=== PATIENT | male | born 1965 | race Caucasian/White ===

== ENCOUNTER 2017-01-02 13:36 | Emergency (ER) | payer SELFPAY ==
[2017-01-02] MEDS ORDERED: NORMAL SALINE 1000 ML 1,000 ML IV ONE (13:53)
[2017-01-02] MEDS ORDERED: OXYCODONE-ACETAMINOPHEN 5-325 MG TABLET PO ONE (13:54)
--- NOTE | 2017-01-02 13:55 | ER Document Report ---
ED Medical Screen (RME) - General Chief Complaint: Flank Pain Stated Complaint: RIGHT FLANK PAIN Time Seen by Provider: 01/02/17 13:51 Information source: Patient Notes: Right flank pain with radiation to his right lower quadrant with dark urine starting yesterday. Nausea without vomiting or fevers. No testicular pain or swelling. No history of kidney stones. TRAVEL OUTSIDE OF THE [place] IN LAST 30 DAYS: No - Related Data Allergies/Adverse Reactions: Penicillins Allergy (Unknown, Verified 04/23/13 10:47) Sulfa (Sulfonamide Antibiotics) Allergy (Unknown, Verified 04/23/13 10:48) Past Medical History Renal/ Medical History: Denies: Hx Peritoneal Dialysis Past Surgical History: Reports: Hx Abdominal Surgery - exploratory lap - Immunizations Hx Diphtheria, Pertussis, Tetanus Vaccination: No Physical Exam - Vital signs Vitals: Temp Pulse Resp BP Pulse Ox 98.3 F 88 16 157/106 H 99 01/02/17 13:47 01/02/17 13:47 01/02/17 13:47 01/02/17 13:47 01/02/17 13:47 Course - Vital Signs Vital signs: Temp Pulse Resp BP Pulse Ox 98.3 F 88 16 157/106 H 99 01/02/17 13:47 01/02/17 13:47 01/02/17 13:47 01/02/17 13:47 01/02/17 13:47
[2017-01-02 14:30] LABS: ABSOLUTE LYMPHOCYTES (AUTO) 1.6 10^3/uL (0.5-4.7); ABSOLUTE MONOCYTES (AUTO) 0.9 10^3/uL (0.1-1.4); ABSOLUTE NEUT (AUTO) 9.8 10^3/uL (1.7-8.2); BASOPHILS % (AUTO) 0.1 % (0-2); EOSINOPHILS % (AUTO) 0.3 % (0-6); HEMOGLOBIN 15.7 g/dL (13.5-17.0); HGB HCT DIFFERENCE 2.1; LYMPHOCYTES % (AUTO) 12.9 % (13-45); MEAN CORPUSCULAR HEMOGLOBIN 36.9 pg (27.0-33.4); MEAN CORPUSCULAR HGB CONC 34.8 g/dL (32.0-36.0); MEAN CORPUSCULAR VOLUME 106 fl (80-97); MONOCYTES % (AUTO) 7.3 % (3-13); RED BLOOD COUNT 4.24 10^6/uL (4.35-5.55); RED CELL DISTRIBUTION WIDTH 13.9 % (11.5-14.0); SEGMENTED NEUTROPHILS % (AUTO) 79.4 % (42-78); WHITE BLOOD COUNT 12.3 10^3/uL (4.0-10.5)
[2017-01-02 14:38] LABS: APPEARANCE,URINE SLIGHTLY-CLOUDY; BILIRUBIN,URINE NEGATIVE (NEGATIVE); GLUCOSE, URINE NEGATIVE (NEGATIVE); KETONES,URINE NEGATIVE (NEGATIVE); LEUKOCYTE ESTERASE,URINE LARGE (NEGATIVE); NITRITE,URINE NEGATIVE (NEGATIVE); PROTEIN,URINE 100 mg/dL (NEGATIVE); URINE SPECIFIC GRAVITY 1.002; UROBILINOGEN,URINE NEGATIVE mg/dL (<2.0)
[2017-01-02 14:42] LABS: ANION GAP 15 (5-19); BLOOD UREA NITROGEN 2 mg/dL (7-20); CALCIUM 9.3 mg/dL (8.4-10.2); CARBON DIOXIDE 27 mmol/L (22-30); CHLORIDE 99 mmol/L (98-107); CREATININE RESULT 0.59 mg/dL (0.52-1.25); GLUCOSE 105 mg/dL (75-110)
--- NOTE | 2017-01-02 14:55 | RADIOLOGY REPORT (SQ) ---
EXAM DESCRIPTION: CT [facility] RENAL STONE PROTOCOL ON COMPLETED DATE/TIME: 01/02/2017 2:30 pm REASON FOR STUDY: PIT, right flank pain COMPARISON: None. TECHNIQUE: CT scan of the abdomen and pelvis performed without intravenous or oral contrast. Images reviewed with lung, soft tissue, and bone windows. Reconstructed coronal and sagittal MPR images revi ewed. All images stored on PACS. All CT scanners at this facility use dose modulation, iterative reconstruction, and/or weight based d osing when appropriate to reduce radiation dose to as low as reasonably achievable (ALARA). [facility]: Dose Right [facility]: CareDose [facility]: Dose Right [facility]: Teradose 4D [facility]: [employer] RADIATION DOSE: Up-to-date CT equipment and radiation dose reduction techniques were employed. CTDIv ol: 4.9 mGy. DLP: 261 mGy-cm.mGy. LIMITATIONS: None. FINDINGS: Right-sided perinephric stranding is present, with mild prominence of the right ureter americo n to the level of the ureterovesical junction. No radiopaque stone is identified. Findings could be due to pyelonephritis, or non radiopaque ureteral stone in the distal ureter. Recent passage of a k idney stone could also mimic this appearance. No right-sided renal cysts or gross renal masses. No radiopaque right intrarenal calculi. . LOWER CHEST: No significant findings. No nodules or infiltrates. NON-CONTRASTED LIVER, SPLEEN, ADRENALS: Decreased attenuation of the liver from fatty infiltration. Spleen, adrenal glands unremarkable. PANCREAS: No masses. No peripancreatic inflammatory changes. GALLBLADDER: No identified stones by CT criteria. No inflammatory changes to suggest cholecystitis. RIGHT KIDNEY AND URETER: As above LEFT KIDNEY AND URETER: No suspicious masses. Assessment limited by lack of IV contrast. No signifi cant calcifications. No hydronephrosis or hydroureter. AORTA AND RETROPERITONEUM: No aneurysm. No retroperitoneal masses or adenopathy. BOWEL AND PERITONEAL CAVITY: No obvious masses or inflammatory changes. No free fluid. APPENDIX: Not identified. No right lower quadrant inflammatory change PELVIS, BLADDER, AND ABDOMINAL WALL:No abnormal masses. No free fluid. Bladder normal. BONES: No significant findings. OTHER: No other significant finding. IMPRESSION: Right-sided perinephric stranding, with mild dilatation of the ureter from renal pelvis to the bladder. Question recently passed right ureteral stone versus non radiopaque calculus. Pyelo nephritis could also mimic this appearance. Appendix not visualized. No right lower quadrant inflammatory change. TECHNICAL DOCUMENTATION: JOB ID: [id number] Quality ID # [id number]: Final reports with documentation of one or more dose reduction techniques (e.g., Au tomated exposure control, adjustment of the mA and/or kV according to patient size, use of iterative reconstruction technique) 2010 [employer]- All Rights Reserved
[2017-01-02] MEDS ORDERED: CIPROFLOXACIN 200 MG/D5W RTU 100 ML IV ONE (15:16)
--- NOTE | 2017-01-02 15:17 | ER Document Report ---
ED GI/ - General Chief Complaint: Flank Pain Stated Complaint: RIGHT FLANK PAIN Time Seen by Provider: 01/02/17 13:51 Mode of Arrival: Ambulatory Information source: Patient Notes: Patient is a 51-year-old male who presents to the ER today for right flank pain radiating around to the right lower abdomen that began 4 days ago. Patient had a fever 104F 2 days ago and admits to burning with urination. He denies any hematuria, history of kidney stones. TRAVEL OUTSIDE OF THE [place] IN LAST 30 DAYS: No - Related Data Allergies/Adverse Reactions: Penicillins Allergy (Unknown, Verified 04/23/13 10:47) Sulfa (Sulfonamide Antibiotics) Allergy (Unknown, Verified 04/23/13 10:48) Past Medical History - General Information source: Patient - Social History Smoking Status: Unknown if Ever Smoked Family History: Reviewed & Not Pertinent Renal/ Medical History: Denies: Hx Peritoneal Dialysis Past Surgical History: Reports: Hx Abdominal Surgery - exploratory lap - Immunizations Hx Diphtheria, Pertussis, Tetanus Vaccination: No Review of Systems - Review of Systems Constitutional: See HPI EENT: No symptoms reported Cardiovascular: No symptoms reported Respiratory: No symptoms reported Gastrointestinal: No symptoms reported Genitourinary: See HPI Male Genitourinary: No symptoms reported Musculoskeletal: No symptoms reported Skin: No symptoms reported Hematologic/Lymphatic: No symptoms reported Neurological/Psychological: No symptoms reported Physical Exam - Vital signs Vitals: Temp Pulse Resp BP Pulse Ox 98.3 F 88 16 157/106 H 99 01/02/17 13:47 01/02/17 13:47 01/02/17 13:47 01/02/17 13:47 01/02/17 13:47 - Notes Notes: PHYSICAL EXAMINATION: GENERAL: Obviously uncomfortable, in no acute distress. HEAD: Atraumatic, normocephalic. EYES: Pupils equal round and reactive to light, extraocular movements intact, sclera anicteric, conjunctiva are normal. NECK: Normal range of motion, supple without lymphadenopathy LUNGS: CTAB and equal. No wheezes rales or rhonchi. HEART: Regular rate and rhythm without murmurs ABDOMEN: Soft, right lower quadrant, right-sided tenderness. No guarding, no rebound BACK: no vertebral tenderness, normal ROM GI/: Right CVA tenderness EXTREMITIES: Normal range of motion, no pitting edema. No cyanosis. NEUROLOGICAL: Cranial nerves grossly intact. Normal sensory/motor exams. PSYCH: Normal mood, normal affect. SKIN: Warm, Dry, normal turgor, no rashes or lesions noted Course - Re-evaluation Re-evalutation: 01/02/17 15:30 Patient's white count 12.3, CT of the abdomen reports perinephric stranding over the right kidney, no evidence of stone, patient does have tenderness in the right flank. Patient has received IV fluids, IV Rocephin, IV pain medication here. Patient has had a fever up to 104 although he is afebrile here. Will treat patient with outpatient Cipro as his vitals are all stable today, patient is not tachycardic. - Vital Signs Vital signs: Temp Pulse Resp BP Pulse Ox 98.3 F 88 16 157/106 H 99 01/02/17 13:47 01/02/17 13:47 01/02/17 13:47 01/02/17 13:47 01/02/17 13:47 - Laboratory Result Diagrams: 01/02/17 14:10 01/02/17 14:10 Laboratory results interpreted by me: 01/02/17 01/02/17 01/02/17 14:10 14:10 14:10 WBC 12.3 H RBC 4.24 L MCV 106 H MCH 36.9 H Seg Neutrophils % 79.4 H Lymphocytes % 12.9 L Absolute Neutrophils 9.8 H BUN 2 L Urine Protein 100 H Urine Blood MODERATE H Ur Leukocyte Esterase LARGE H Discharge - Discharge Clinical Impression: Pyelonephritis Condition: Stable Disposition: HOME, SELF-CARE Instructions: Levofloxacin Additional Instructions: Return immediately for any new or worsening symptoms. Follow up with primary care provider, call tomorrow to make followup appointment. Prescriptions: Ciprofloxacin HCl [Cipro 500 mg Tablet] 500 mg PO BID #20 tablet Oxycodone HCl/Acetaminophen [Percocet 5-325 mg Tablet] 1 - 2 tab PO Q4H PRN #15 tablet PRN Reason: Forms: Return to Work
[2017-01-02] MEDS ORDERED: MORPHINE SULFATE 10 MG/ML INJ IV ONE ×2 (15:24→17:08)
[2017-01-02] MEDS ORDERED: ONDANSETRON HCL INJ/PF 4 MG/2 ML SDV IV ONE (16:01)
[2017-01-02 17:26] VITALS: BP 138/87
== END 2017-01-02 17:27 | disposition home or self-care (01) ==
LOC: ER 13:36
DX: N12 Tubulo-interstitial nephritis, not specified as acute or chronic (principal); Z88.0 Allergy status to penicillin; Z88.2 Allergy status to sulfonamides
CPT/HCPCS: 96376; 99284; 96361; 96375; 96365; 36415; 85025; 80048; 81001; 76380; J2270; J2405; J7030; J0744

== ENCOUNTER 2018-02-04 22:14 | Emergency (ER) | payer SELFPAY ==
[2018-02-05] MEDS ORDERED: RINGERS SOLUTION,LACTATED 1,000 ML IV ONE (01:03)
[2018-02-05] MEDS ORDERED: LIDOCAINE 1%/EPINEPHRINE INJ 20 ML VIAL INJ ONE (01:04)
[2018-02-05] MEDS ORDERED: LIDOCAINE 1% INJ-PF (10 MG/ML) 30 ML SDV ONE (01:04)
--- NOTE | 2018-02-05 01:36 | RADIOLOGY REPORT (SQ) ---
EXAM DESCRIPTION: XR CHEST 1 VIEW COMPLETED DATE/TME: 02/05/2018 01:03 CLINICAL HISTORY: fever COMPARISON: None. FINDINGS: Single frontal view of the chest. The cardiomediastinal silhouette has normal size and contour. Patchy right basilar opacity. No large effusion or pneumothorax. No displaced rib fractures identified. Upper abdominal soft tissues are unremarkable. IMPRESSION: 1. Minimal patchy right basilar opacity may represent developing pneumonia. Given somewhat nodular configuration continued radiographic follow-up to resolution recommended.
[2018-02-05 02:13] LABS: APPEARANCE ALL TUBES CLEAR; COLOR ALL TUBES COLORLESS; CSF TUBE NUMBER 3; RED BLOOD CELL,CSF 1 /uL (0-10); WHITE BLOOD CELL,CSF 1 /uL (0-5)
[2018-02-05 02:18] LABS: ABSOLUTE LYMPHOCYTES (AUTO) 1.2 10^3/uL (0.5-4.7); ABSOLUTE MONOCYTES (AUTO) 0.5 10^3/uL (0.1-1.4); ABSOLUTE NEUT (AUTO) 8.3 10^3/uL (1.7-8.2); BASOPHILS % (AUTO) 0.3 % (0-2); EOSINOPHILS % (AUTO) 0.1 % (0-6); HEMATOCRIT 43.5 % (37.9-51.0); HEMOGLOBIN 15.5 g/dL (13.5-17.0); LYMPHOCYTES % (AUTO) 11.7 % (13-45); MEAN CORPUSCULAR HEMOGLOBIN 39.5 pg (27.0-33.4); MEAN CORPUSCULAR HGB CONC 35.6 g/dL (32.0-36.0); MONOCYTES % (AUTO) 5.2 % (3-13); PLATELET COUNT 225 10^3/uL (150-450); RED BLOOD COUNT 3.92 10^6/uL (4.35-5.55); RED CELL DISTRIBUTION WIDTH 16.5 % (11.5-14.0); SEGMENTED NEUTROPHILS % (AUTO) 82.7 % (42-78); TOTAL CELLS COUNTED % (AUTO) 100 %
[2018-02-05 02:18] LABS: GLUCOSE,CSF 80 mg/dL (40-70); PROTEIN,CSF 60 mg/dL (12-60)
[2018-02-05 02:22] LABS: VENOUS BLOOD BASE EXCESS 0.8 mmol/L; VENOUS BLOOD HCO3 26.6 mmol/L (20-32); VENOUS BLOOD PCO2 46.4 mmHg (35-63); VENOUS BLOOD PH 7.38 (7.30-7.42)
[2018-02-05 02:27] LABS: ANION GAP 16 (5-19); BLOOD UREA NITROGEN 3 mg/dL (7-20); CALCIUM 8.5 mg/dL (8.4-10.2); CARBON DIOXIDE 24 mmol/L (22-30); CHLORIDE 106 mmol/L (98-107); GLUCOSE 131 mg/dL (75-110); MEAN CORPUSCULAR VOLUME 111 fl (80-97); POTASSIUM 3.4 mmol/L (3.6-5.0); SODIUM 145.7 mmol/L (137-145)
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
[2018-02-05 02:43] LABS: ANISOCYTOSIS 1+; PLATELET COMMENT ADEQUATE; PLATELET LARGE PRESENT
[2018-02-05 03:35] VITALS: BP 121/71
[2018-02-05 11:25] LABS: PATH REVIEW PATHOLOGIST REVIEWED
== END 2018-02-05 03:15 | disposition home or self-care (01) ==
LOC: ER 22:14
DX: J18.1 Lobar pneumonia, unspecified organism (principal); R51 Headache; R50.9 Fever, unspecified; I10 Essential (primary) hypertension; F17.200 Nicotine dependence, unspecified, uncomplicated; Z86.61 Personal history of infections of the central nervous system; Z88.0 Allergy status to penicillin; Z88.2 Allergy status to sulfonamides; R00.0 Tachycardia, unspecified
CPT/HCPCS: 99284; 36415; 87070; 87205; 87252; 83605; 85025; 89050; 82945; 84157; 80048; 82803; 71045; 62270; J3490; J7120

== ENCOUNTER 2018-04-07 11:20 | Emergency (ER) | payer SELFPAY ==
[2018-04-07] MEDS ORDERED: HYDROCODONE/ACETAMINOPHEN 5-325 MG TABLET PO ONE (12:22)
[2018-04-07] MEDS ORDERED: IBUPROFEN 600 MG TABLET PO ONE (12:23)
--- NOTE | 2018-04-07 12:51 | ER Document Report ---
HPI - HPI Pain Level: 3 Notes: Patient is a 52-year-old male who presents with chief complaint of left hand injury that occurred yesterday. Patient reports he was hanging a piece of drywall when the drywall slipped and fell onto the dorsal surface of his left hand. Patient reports pain near the fourth digit. - CONSTITUTIONAL Constitutional: DENIES: Fever, Chills - MUSCULOSKELETAL Musculoskeletal: REPORTS: Extremity pain - left hand Past Medical History - General Information source: Patient - Social History Smoking Status: Current Every Day Smoker Frequency of alcohol use: everyday Drug Abuse: Marijuana Family History: Reviewed & Not Pertinent Patient has suicidal ideation: No Patient has homicidal ideation: No - Past Medical History Cardiac Medical History: Reports: Hx Hypertension Pulmonary Medical History: Reports: Hx Pneumonia Renal/ Medical History: Denies: Hx Peritoneal Dialysis Past Surgical History: Reports: Hx Abdominal Surgery - exploratory lap - Immunizations Hx Diphtheria, Pertussis, Tetanus Vaccination: No Vertical Provider Document - CONSTITUTIONAL Notes: PHYSICAL EXAMINATION: GENERAL: Well-appearing, well-nourished and in no acute distress. HEAD: Atraumatic, normocephalic. EYES: Pupils equal round extraocular movements intact, conjunctiva are normal. ENT: Nares patent NECK: Normal range of motion LUNGS: No respiratory distress Musculoskeletal: Normal range of motion, swelling noted over the fourth metacarpal on the left hand, cap refill less than 3 seconds, normal motor and sensation distal to injury. NEUROLOGICAL: Normal speech, normal gait. PSYCH: Normal mood, normal affect. SKIN: Warm, Dry, normal turgor, no rashes or lesions noted. - INFECTION CONTROL TRAVEL OUTSIDE OF THE [place] IN LAST 30 DAYS: No Course - Re-evaluation Re-evalutation: X-ray reveals mildly displaced oblique fracture of the fourth metacarpal on the left hand. Patient placed in splint in position of comfort. Patient will be discharged home and referred to orthopedics. - Vital Signs Vital signs: Temp Pulse Resp BP Pulse Ox 97.7 F 75 20 155/107 H 94 04/07/18 11:36 04/07/18 11:36 04/07/18 11:36 04/07/18 11:36 04/07/18 11:36 Procedures - Immobilization left hand Pre-Proc Neuro Vasc Exam: Normal Immobilizer type: Other Performed by: PCT Post-Proc Neuro Vasc Exam: Normal Alignment checked and good: Yes Discharge - Discharge Clinical Impression: Fracture, metacarpal Qualifiers: Encounter type: initial encounter Metacarpal bone: fourth Fracture type: closed Metacarpal location: shaft Fracture alignment: displaced Laterality: left Qualified Code(s): S62.325A - Displaced fracture of shaft of fourth metacarpal bone, left hand, initial encounter for closed fracture Condition: Stable Disposition: HOME, SELF-CARE Additional Instructions: Fractured Metacarpal You have broken a metacarpal bone in the hand. The fracture is usually caused by hitting the hand against a hard surface, but can also be caused by jamming a finger. At first the injury should be rested, elevated, and ice packed. The usual treatment is splinting for four to six weeks. For some patients, a cast is preferable. The physician will advise you. It's important to avoid any twisting or jamming of the fingers while the fracture is healing. Force on the fingers can make the fracture move. Usually , one or two fingers are included in the splint or cast. Sometimes fingers are taped instead -- in this case, extra caution to prevent a twisting of the fingers is necessary. Call the doctor or come back if swelling or pain become severe, if numbness develops, or if you suspect you may have disturbed the fracture. Please keep the splint in place for protection. Ice and elevate the extremity. Take Motrin 600 mg every 6 hours for pain, use the narcotic pain medication for severe pain only. Follow-up with orthopedics, call them in the morning to schedule an appointment. Let them know you were seen in the emergency department for a fracture in your hand. Prescriptions: Hydrocodone/Acetaminophen [Hydrocodon-Acetaminophen 5-325] 1 each PO Q4H PRN # 12 tablet PRN Reason: For Pain Referrals: COLLIN ANNE DO [ACTIVE STAFF] - Follow up as needed
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
[2018-04-07 13:20] VITALS: BP 150/89
== END 2018-04-07 13:19 | disposition home or self-care (01) ==
LOC: ER 11:20
DX: S62.325A Displaced fracture of shaft of fourth metacarpal bone, left hand, initial encounter for closed fracture (principal); W22.8XXA Striking against or struck by other objects, initial encounter; F17.200 Nicotine dependence, unspecified, uncomplicated; I10 Essential (primary) hypertension
CPT/HCPCS: 99283

== ENCOUNTER 2018-05-14 08:49 | Emergency (ER) | payer SELFPAY ==
[2018-05-14] MEDS ORDERED: LIDOCAINE 5% (700 MG) TRANSDERMAL ADH..PATCH TP ONE (09:30)
[2018-05-14] MEDS ORDERED: IBUPROFEN 800 MG TABLET PO ONE (09:30)
[2018-05-14] MEDS ORDERED: OXYCODONE-ACETAMINOPHEN 5-325 MG TABLET PO ONE (09:30)
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
[2018-05-14 11:03] VITALS: BP 133/90
== END 2018-05-14 11:05 | disposition home or self-care (01) ==
LOC: ER 08:49
DX: S22.42XA Multiple fractures of ribs, left side, initial encounter for closed fracture (principal); Y09 Assault by unspecified means; F17.200 Nicotine dependence, unspecified, uncomplicated; I10 Essential (primary) hypertension
CPT/HCPCS: 99283